=== PATIENT | female | born 1985 | race Caucasian/White ===

== ENCOUNTER 2022-01-09 05:30 | Inpatient (IN) | payer MEDICARE, MEDICAID ==
[2022-01-09] MEDS ORDERED: Misoprostol 200 MCG TAB PR PRN (10:55)
[2022-01-09] MEDS ORDERED: NS w/ Oxytocin 30 units 500 ML IV SCH ×2 (10:55)
[2022-01-09] MEDS ORDERED: Lactated Ringer's 1,000 ML IV SCH (10:55)
[2022-01-09] MEDS ORDERED: Lidocaine 1% (PF) 30 ML VIAL SC PRN (10:55)
[2022-01-09] MEDS ORDERED: Ibuprofen 800 MG TAB PO PRN (10:55)
[2022-01-09] MEDS ORDERED: Penicillin G Potassium 5 MILL.UNITS in Sodium Chloride 0.9% 100 ML IVPB SCH (10:55)
[2022-01-09] MEDS ORDERED: Methylergonovine 0.2 MG/ML VIAL IM PRN (10:55)
[2022-01-09] MEDS ORDERED: HYDROcodone/Acetaminophen 5/325 mg Tablet PO PRN (10:55)
[2022-01-09] MEDS ORDERED: Promethazine HCl 25 MG/ML VIAL IM PRN ×2 (10:55→16:20)
[2022-01-09] MEDS ORDERED: Butorphanol Tartrate 1 MG/ML VIAL SLOW IVP PRN (10:55)
[2022-01-09] MEDS ORDERED: Ondansetron PF 4 MG/2 ML Vial IVP PRN ×2 (10:55→16:20)
[2022-01-09] MEDS ORDERED: Carboprost 250 MCG/ML AMP IM PRN (10:55)
[2022-01-09] MEDS ORDERED: Acetaminophen 500 MG TAB PO PRN (10:55)
[2022-01-09] MEDS ORDERED: Diphenoxylate HCl/Atropine Tablet PO PRN (10:55)
[2022-01-09] MEDS ORDERED: hydrALAZINE 20 MG/ML VIAL SLOW IVP PRN (10:55)
[2022-01-09 12:00] LABS: Hemoglobin 11.3 g/dL (12.0-15.5); Mean Corpuscular HGB CONC 32.6 g/dL (32.0-36.0); Mean Corpuscular Hemoglobin 29.4 pg (27.0-33.0); Mean Corpuscular Volume 90.4 fl (81.6-98.3); Platelet Count 184 10x3/uL (150-450); RBC Distribution Width 16.9 % (11.5-14.5); Red Blood Cell (RBC) Count 3.84 10x6/uL (3.90-5.03); White Blood Cell (WBC) Count 9.4 10x3/uL (3.5-10.5)
[2022-01-09 12:05] VITALS: BMI 30.7
[2022-01-09 12:21] LABS: Hep B Surf Ag Non-Reactive S/CO (NonReactive)
[2022-01-09 12:22] LABS: Syphilis Antibody Nonreactive (Nonreactive); Syphilis Antibody Index 0.07 S/CO (<1.00 Non-Reactive)
[2022-01-09 12:32] LABS: HBSAg Index 0.17 S/CO (0-0.99)
[2022-01-09] MEDS ORDERED: Fentanyl 2 mcg/Bup 0.1% Cadd 100 ML ONE (15:42)
[2022-01-09] MEDS: Penicillin G 2.5 MILL.units 2.5 MILL.UNITS in Premix Bag 1 BAG IVPB SCH ×2 (15:50→20:28)
[2022-01-09] MEDS ORDERED: Acetaminophen 325 MG TAB PO PRN (16:20)
[2022-01-09] MEDS ORDERED: Lactated Ringer's 500 ML IV PRN (16:20)
[2022-01-09] MEDS ORDERED: Moisturizing Cream (Eucerin) 113 GM JAR TOP PRN (16:20)
[2022-01-09] MEDS ORDERED: diphenhydrAMINE 50 MG/ML VIAL IVP PRN (16:20)
[2022-01-09] MEDS ORDERED: Naloxone HCl 0.4 mg/ml Vial IVP PRN ×2 (16:20)
[2022-01-09] MEDS ORDERED: ePHEDrine Sulfate 50 MG/10 ML VIAL SLOW IVP PRN (16:20)
[2022-01-09] MEDS ORDERED: Fentanyl 2 mcg/Bupivacaine 0.1% Cassette 100 ML EPIDURAL SCH (16:30)
[2022-01-09] MEDS ORDERED: Communication Order-Pharmacy FS SCH (16:30)
[2022-01-10] MEDS ORDERED: HYDROcodone/Acetaminophen 5/325 mg Tablet PO PRN (00:02)
[2022-01-10] MEDS ORDERED: Bisacodyl 10 MG SUPP PR PRN (00:02)
[2022-01-10] MEDS ORDERED: hydrALAZINE 20 MG/ML VIAL SLOW IVP PRN (00:02)
[2022-01-10] MEDS ORDERED: Lanolin Ointment 7 GM TUBE TOP PRN (00:02)
[2022-01-10] MEDS ORDERED: Milk Of Magnesia 30 ML UDCUP PO PRN (00:02)
[2022-01-10] MEDS ORDERED: Ondansetron PF 4 MG/2 ML Vial IVP PRN (00:02)
[2022-01-10] MEDS ORDERED: Preparation H Ointment 28 GM TUBE PR PRN (00:02)
[2022-01-10] MEDS ORDERED: Boostrix 0.5 ML (Tdap) VIAL IM ONE (00:02)
[2022-01-10] MEDS ORDERED: Benzocaine-Menthol 82.5 ML CAN TOP PRN (00:02)
[2022-01-10] MEDS ORDERED: diphenhydrAMINE 25 MG CAP PO PRN (00:02)
[2022-01-10] MEDS ORDERED: Acetaminophen 325 MG TAB PO PRN (00:27)
[2022-01-10] MEDS: Penicillin G 2.5 MILL.units 2.5 MILL.UNITS in Premix Bag 1 BAG IVPB SCH (01:35)
[2022-01-10] MEDS ORDERED: Carboprost 250 MCG/ML AMP ONE (07:03)
[2022-01-10] MEDS: Ibuprofen 800 MG TAB PO SCH ×3 (08:10→20:59)
[2022-01-10] MEDS: Docusate 100 MG CAP PO SCH ×2 (08:12→20:25)
[2022-01-10] MEDS: Prenatal Vitamin 1 TAB PO SCH (08:12)
[2022-01-10] MEDS: HYDROcodone/Acetaminophen 5/325 mg Tablet PO PRN ×4 (08:14→23:05)
[2022-01-10] MEDS: Ferrous Sulfate 325 MG TAB PO SCH ×2 (08:16→19:42)
[2022-01-11] MEDS: Ibuprofen 800 MG TAB PO SCH (06:00)
[2022-01-11] MEDS: HYDROcodone/Acetaminophen 5/325 mg Tablet PO PRN ×2 (06:02→10:14)
[2022-01-11 07:25] VITALS: BP 105/58; TEMP 98.5
[2022-01-11] MEDS: Docusate 100 MG CAP PO SCH (08:40)
[2022-01-11] MEDS: Prenatal Vitamin 1 TAB PO SCH (08:40)
[2022-01-11] MEDS: Ferrous Sulfate 325 MG TAB PO SCH (08:41)
== END 2022-01-11 10:50 | disposition home or self-care (01) | DRG 807 ==
LOC: CSHLD 10:37 → CSHPP 23:50
PROVIDERS: ADMIT Student in an Organized Health Care Education/Training Program; ATTEND Student in an Organized Health Care Education/Training Program
PROC: 10E0XZZ Delivery of Products of Conception, External Approach (ICD-10-PCS; principal; 2022-01-09)
DX: O99.824 Streptococcus B carrier state complicating childbirth (principal); Z37.0 Single live birth; O99.344 Other mental disorders complicating childbirth; O99.214 Obesity complicating childbirth; E66.9 Obesity, unspecified; F31.9 Bipolar disorder, unspecified; O99.844 Bariatric surgery status complicating childbirth; Z88.8 Allergy status to other drugs, medicaments and biological substances; Z3A.39 39 weeks gestation of pregnancy
CPT/HCPCS: 36415; 51702; 85027; 86780; 86850; 86900; 86901; 87340; J2540; J2590; J3490

== ENCOUNTER 2022-09-18 15:10 | Outpatient (CLI) | payer MEDICARE, MEDICAID | END 2022-09-18 15:11 | disposition home or self-care (01) | LOC: CSHLAB 15:10 | PROVIDERS: ATTEND Student in an Organized Health Care Education/Training Program | DX: Z01.812 Encounter for preprocedural laboratory examination (principal); N92.0 Excessive and frequent menstruation with regular cycle | CPT/HCPCS: 84703; 85027; 86850; 86900; 86901 ==

== ENCOUNTER 2022-09-20 05:42 | Day surgery (SDC) | payer OTHER ==
[2022-09-18 15:47] VITALS: BMI 33.8
[2022-09-18 16:02] LABS: Hemoglobin 13.4 g/dL (12.0-15.5); Mean Corpuscular HGB CONC 33.2 g/dL (32.0-36.0); Mean Corpuscular Hemoglobin 31.4 pg (27.0-33.0); Mean Corpuscular Volume 94.6 fl (81.6-98.3); Mean Platelet Volume 9.6 fl (7.4-10.4); Platelet Count 260 10x3/uL (150-450); RBC Distribution Width 12.8 % (11.5-14.5); Red Blood Cell (RBC) Count 4.27 10x6/uL (3.90-5.03); White Blood Cell (WBC) Count 7.5 10x3/uL (3.5-10.5)
[2022-09-18 16:20] LABS: BHCG - Serum Negative (NEGATIVE); Pregs Control Background? CLEAR/WHITE (CLR/WHITE); Pregs Control Bar Appear? YES (CONTROL BAR)
[2022-09-20] MEDS ORDERED: Famotidine/PF 20 mg/2ml Vial ONE (06:25)
[2022-09-20] MEDS ORDERED: CeleCOXIB 100 MG CAP ONE (06:25)
[2022-09-20] MEDS ORDERED: Gabapentin 300 MG CAP ONE (06:25)
[2022-09-20] MEDS ORDERED: Lidocaine 1% PF 5 ML VIAL ONE (06:36)
[2022-09-20] MEDS ORDERED: Fentanyl 250 MCG/5 ML VIAL ONE (06:36)
[2022-09-20] MEDS ORDERED: Dexamethasone 20 MG/5 ML VIAL ONE (06:36)
[2022-09-20] MEDS ORDERED: Rocuronium Bromide 10 MG/ML (10ML VIAL) ONE (06:36)
[2022-09-20] MEDS ORDERED: Midazolam HCl 2 mg/2 ml Vial ONE (06:36)
[2022-09-20] MEDS ORDERED: Ondansetron PF 4 MG/2 ML Vial ONE (06:36)
[2022-09-20] MEDS ORDERED: PROPOFOL 20 ML ONE (06:36)
[2022-09-20] MEDS ORDERED: Ketorolac Tromethamine 30 MG/ML VIAL ONE (06:37)
[2022-09-20] MEDS ORDERED: Lidocaine 1% (PF) 30 ML VIAL ONE (06:42)
[2022-09-20] MEDS ORDERED: Bupivacaine 0.25% HCL 30 ML VIAL ONE (06:42)
[2022-09-20] MEDS ORDERED: metroNIDAZOLE 500 MG/100 ML BAG ONE (07:03)
[2022-09-20] MEDS ORDERED: CEFAZOLIN 2 GM VIAL ONE (07:25)
[2022-09-20] MEDS ORDERED: HYDROcodone/Acetaminophen 5/325 mg Tablet ONE (10:22)
== END 2022-09-20 11:45 | disposition home or self-care (01) ==
LOC: CSHSDC 05:42
PROVIDERS: ATTEND Student in an Organized Health Care Education/Training Program
PROC: 0UT94ZZ Resection of Uterus, Percutaneous Endoscopic Approach (ICD-10-PCS; principal; 2022-09-20)
PROC: 0UT74ZZ Resection of Bilateral Fallopian Tubes, Percutaneous Endoscopic Approach (ICD-10-PCS; principal; 2022-09-20)
PROC: 0UT14ZZ Resection of Left Ovary, Percutaneous Endoscopic Approach (ICD-10-PCS; principal; 2022-09-20)
DX: N92.0 Excessive and frequent menstruation with regular cycle (principal); N85.8 Other specified noninflammatory disorders of uterus; F32.A Depression, unspecified; F41.9 Anxiety disorder, unspecified; G89.18 Other acute postprocedural pain; E66.9 Obesity, unspecified; Z79.899 Other long term (current) drug therapy; Z88.8 Allergy status to other drugs, medicaments and biological substances; Z68.33 Body mass index [BMI] 33.0-33.9, adult
CPT/HCPCS: 84703; 85027; 86850; 86900; 86901; 88307; J1100; J1885; J2001; J2250; J2405; J2704; J3010; S0020; S0028

== ENCOUNTER 2023-06-23 14:28 | Emergency (ER) | payer MEDICARE, OTHER ==
[2023-06-23] MEDS ORDERED: Ketorolac Tromethamine 30 MG/ML VIAL ONE (15:13)
== END 2023-06-23 15:30 | disposition home or self-care (01) ==
LOC: CSHERS 14:28
DX: M76.61 Achilles tendinitis, right leg (principal); G43.909 Migraine, unspecified, not intractable, without status migrainosus; K21.9 Gastro-esophageal reflux disease without esophagitis; Z79.899 Other long term (current) drug therapy
CPT/HCPCS: 96372; 99283; J1885

== ENCOUNTER 2023-09-06 12:55 | Emergency (ER) | payer OTHER ==
[~2023-09-06 12:55] MED LIST: Iopamidol 370 76% 100 ML VIAL ONE
[2023-09-06 13:36] LABS: #Basophils 0.1 10x3/uL (0.0-0.2); #Eosinphils 0.1 10x3/uL (0.0-0.5); #Monocytes 0.5 10x3/uL (0.0-1.1); #Neutrophils 4.4 10x3/uL (1.5-8.4); %Basophils 0.7 % (0.0-2.0); %Eosinophils 1.5 % (0.0-6.0); %Lymphocytes 36.6 % (18.0-47.0); %Monocytes 6.5 % (0.0-10.0); %Neutrophils 54.5 % (40.0-75.0); Hematocrit 41.6 % (34.9-44.5); Hemoglobin 13.2 g/dL (12.0-15.5); Mean Corpuscular HGB CONC 31.7 g/dL (32.0-36.0); Mean Corpuscular Hemoglobin 30.7 pg (27.0-33.0); Mean Corpuscular Volume 96.7 fl (81.6-98.3); Mean Platelet Volume 9.8 fl (7.4-10.4); Platelet Count 255 10x3/uL (150-450); RBC Distribution Width 13.5 % (11.5-14.5)
[2023-09-06 13:58] LABS: BHCG - Serum Negative (NEGATIVE); Pregs Control Background? CLEAR/WHITE (CLR/WHITE); Pregs Control Bar Appear? YES (CONTROL BAR)
[2023-09-06 14:06] LABS: ALT (SGPT) 19 U/L (8-55); AST (SGOT) 17 U/L (5-34); Albumin 4.3 g/dL (3.5-5.0); Alkaline Phosphatase 73 U/L (40-110); Anion Gap 13 mmol/L (10-20); BUN (Urea Nitrogen) 8 mg/dL (7.0-18.7); Bilirubin, Total 0.3 mg/dL (0.2-1.2); Calc. Creatinine Clearance 0 mL/min (70-130); Carbon Dioxide 27 mmol/L (22-29); Chloride 105 mmol/L (98-107); Estimated GFR 80; Globulin 3.2 g/dL (2.4-3.5); Glucose 95 mg/dL (70-105); Potassium 4.5 mmol/L (3.5-5.1); Protein, Total 7.5 g/dL (6.0-8.3); Sodium 140 mmol/L (136-145)
[2023-09-06 14:24] LABS: Bilirubin Neg (Negative); Blood, Urine Negative (Negative); Clarity Clear (Clear); Glucose, Urine (Dipstick) Normal (Negative); Ketone, Urine Negative (Negative); Leukocyte Negative (Negative); Nitrite Negative (Negative); Protein, Urine (Dipstick) Negative (Neg-Trace); Specific Gravity, Urine 1.015 (1.005-1.030); Urobilinogen Normal mg/dL (Less than 2)
[2023-09-06 14:59] LABS: Bacteria/HPF None Seen HPF (None Seen); CAUTI Indications for Culture Alt mental st,lethar; RBC/HPF None Seen HPF (0-3); Squamous Epithelial None Seen HPF (0-3); WBC/HPF None Seen HPF (0-3)
[2023-09-06 15:00] LABS: Urine Culture Reflex No No
== END 2023-09-06 15:37 | disposition home or self-care (01) ==
LOC: CSHERS 12:55
DX: R42 Dizziness and giddiness (principal)
CPT/HCPCS: 70496; 70498; 80053; 81001; 84703; 85025; 93005; Q9967